=== PATIENT | female | born 1990 | race Caucasian/White ===

== ENCOUNTER 2020-08-16 13:05 | Observation (INO) ==
--- NOTE | 2020-08-16 13:41 | Emergency Department Note ---
Impression & Plan Cat bite, Flexor tenosynovitis of finger, Cat bite of left hand with infection ED Provider Note NAME: JAYLON KENNY AGE: 29 SEX: F : 1990 ARRIVES VIA: Walk-In INFORMANT: Patient, ED PROVIDER(S): Amarjit Chavez DO CHIEF COMPLAINT: Cat bite HPI: The patient is a 29-year-old female [facility]. The patient was bitten by a cat on her left index finger on August 03 of this year. The cat was known and was able to be quarantined. The cat is still alive and well so no rabies vaccination was given. She was seen at an urgent care center. Initially she was seen and given Rocephin and then sent home on Augmentin. She finished the course of Augmentin. She was seen again and started on clindamycin. She is continuing to take the clindamycin at this time. She notices redness and swelling at the left index fever. The patient has noticed worsening pain and swelling especially at the base of the finger. She is noticed some desquamation of the skin. She also notices some streaking up the arm. She denies having any swelling under the armpit. She states the redness began initially right away within the first 24 hours she had significant redness and swelling of the base of the finger. She denies having any fever. She has had no nausea or vomiting. She states that her tetanus shot is up-to-date. She states she has significant pain with straig htening of the digit. She tried to call a specialist today to be seen but was referred to the emergency department for further evaluation. ROS: See above HPI for pertinent positives & negatives. A total of 10 systems reviewed and were otherwise negative. PAST MEDICAL HISTORY: See Below PAST SURGICAL HISTORY: See Below FAMILY HISTORY: See Below SOCIAL HISTORY: See Below HOME MEDICATIONS: See Below ALLERGIES: See Below VITALS: See Below PHYSICAL EXAMINATION: GENERAL: The patient is awake and alert. The patient is somewhat anxious appearing. EYES: The conjunctivae are clear. The pupils are round and reactive. EARS, NOSE, MOUTH AND THROAT: The nose is without any evidence of any deformity. NECK: The neck is nontender and supple. RESPIRATORY: Normal respiratory effort is noted there is no evidence of wheezing rhonchi or rales CARDIOVASCULAR: Regular rate and rhythm noted there no murmurs rubs or gallops normal S1 normal S2. GASTROINTESTINAL: The abdomen is soft. Abdomen is nontender. MUSCULOSKELETAL/EXTREMITIES: There is no evidence of gross deformity full range of motion is noted in the hips and shoulders. SKIN: There is no lymph node swelling in the left axilla. There is symmetric swelling and erythema of the left index finger. Most of the swelling is concentrated at the base. The patient has significant pain with passive extension of the digit. There does not appear to be significant lymphangitic streaking on my exam. NEUROLOGIC: Patient is awake alert and oriented x3. MEDICAL DECISION MAKING: The patient is a 29-year-old female who presented to the emergency department for an evaluation of a hand infection. The patient was bitten by a cat 13 days ago. She has been on multiple antibiotic regimens and continues have significant infection especially in the left index finger. The patient states that she initially had significant swelling and erythema which has improved but she has been left with symmetric swelling and pain with passive extension of the left index finger. The patient's history and physical exam do appear to be consistent with flexor tenosynovitis but I would wonder if this is more of a subacute presentation likely because she has been on antibiotics continuously since the injury. The patient was treated with IV Rocephin in the emergency department. I discussed her case with the hand surgeon. He is agreed to evaluate the patient in the emergency department for further management and possible surgical intervention. Triage Nursing notes reviewed. Prior medical records reviewed Vital Signs: reviewed and remarkable for Elevated blood pressure Differential diagnosis: Cellulitis, abscess, MRSA infection, DVT, necrotizing fasciitis, dermatitis, drug eruption, allergic reaction, foreign body, flexor tenosynovitis as well as other pathologies. ER treatment provided: See below Diagnostics interpreted by me: ECG: none Laboratory studies: As stated above and show below. Imaging studies: See below Consultation(s): 1415: I discussed this case with Dr. Rivera. He is on-call for hand surgery. 1430: I discussed this case with Raphael Louise. He is agreed to evaluate the patient in the emergency department for further management and disposition. Past Med/Surg History Medical History (Updated 08/16/20 @ 14:47 by Amarjit Chavez, ) Encounter for intrauterine device placement Surgical History (Updated 08/16/20 @ 13:41 by Amarjit Chavez DO) Status post wisdom tooth extraction Social History Smoking Status: Never smoker Preferred Language: Arabic Feels Safe at Home: Yes Results & Data (ED) Vital Signs Vital Signs - 24 hr 08/16/20 13:08 Temperature 36.9 C Temperature Source Temporal Artery Scan Pulse Rate 87 Pulse Rhythm Regular Pulse Strength Normal Respiratory Rate 20 Respiratory Effort / Characteristics Non-Labored Spontaneous Respiratory Depth Normal Respiratory Pattern Regular Blood Pressure 141/89 H Blood Pressure Mean 106 Blood Pressure Position Sitting Pulse Oximetry 100 Oxygen Delivery Method Room Air Sepsis Recent Fever Within 48 Hours No Sepsis New/Unexplained Change in Mental Status No Sepsis Action Taken by Nursing No Action Required Home Medications Current Medication List: was personally reviewed by me Laboratory Data Attestation: I reviewed the patient's lab results. Result diagrams: 08/16/20 13:48 08/16/20 13:48 Lab Results 08/16/20 08/16/20 08/16/20 Range/Units 13:48 13:48 13:48 WBC 5.51 (4.8-10.8) K/uL RBC 4.38 (4.2-5.4) M/uL Hgb 13.8 (12.0-16.0) g/dL Hct 40.9 (37-47) % MCV 93.4 (80-100) fL MCH 31.5 (25-34) pg MCHC 33.7 (32-36) g/dL RDW Std Deviation 41.9 (36.4-46.3) fL RDW Coeff of Syl 12.3 (11.5-14.5) % Plt Count 318 (130-400) K/uL MPV 9.9 (7.4-10.4) fL Immature Gran % (Auto) 0.2 % Neut % (Auto) 53.2 % Lymph % (Auto) 28.1 % Hartley % (Auto) 15.6 % Eos % (Auto) 2.2 % Baso % (Auto) 0.7 % Neut # (Auto) 2.93 (1.4-6.5) K/uL Lymph # (Auto) 1.55 (1.2-3.4) K/uL Hartley # (Auto) 0.86 H (0.11-0.59) K/uL Eos # (Auto) 0.12 (0-0.5) K/uL Baso # (Auto) 0.04 (0-0.2) K/uL Immature Gran # (Auto) 0.01 (0.00-0.02) K/uL ESR 13 (0-20) mm/hr Sodium 139 (136-145) mmol/L Potassium 3.8 (3.5-5.1) mmol/L Chloride 105 (98-107) mmol/L Carbon Dioxide 32 (21-32) mmol/L Anion Gap 2.0 L (3-11) BUN 14 (7-18) mg/dl Creatinine 0.85 (0.6-1.2) mg/dl Est Cr Clr Drug Dosing 88.0 ml/min Est GFR ( Amer) 108.8 Est GFR (Non-Af Amer) 93.9 BUN/Creatinine Ratio 17.0 (10-20) Glucose 88 (70-99) mg/dl Calcium 9.3 (8.5-10.1) mg/dl Total Bilirubin 1.1 H (0.2-1) mg/dl AST 29 (15-37) U/L ALT 65 (12-78) U/L Alkaline Phosphatase 50 (45-117) U/L C-Reactive Protein 0.87 H (0-0.29) mg/dl Total Protein 8.1 (6.4-8.2) gm/dl Albumin 3.9 (3.4-5.0) gm/dl Globulin 4.2 H (2.5-4.0) gm/dl Albumin/Globulin Ratio 0.9 (0.9-2) Administered Medications Discontinued Medications Ceftriaxone Sodium (Rocephin) 1,000 mg in 50 mls @ 100 mls/hr IV NOW STA Stop: 08/16/20 14:46 Last Admin: 08/16/20 14:30 Dose: 100 mls/hr Documented by: [id number] Imaging Data Radiologist's Impression: Hand X-Ray 08/16/20 13:41 XR hand LT min 3V routine CLINICAL HISTORY: cat bite FINGER SWELLING. COMPARISON: None. DISCUSSION: No acute fractures or dislocations are visualized. There is soft tissue swelling centered on the second finger. No radiopaque foreign bodies are visualized. There are no erosive or destructive changes. IMPRESSION: 1. Soft tissue swelling involving the second digit 2. No fractures or dislocations 2. No radiopaque foreign bodies identified ACT 112: Negative or not required by law. Electronically signed by: Awais Novoa M.D. 08/16/2020 1:56 PM Discharge Plan Visit Data Chief Complaint: Animal Bite Stated Complaint: CAT BITE TO LEFT POINTER FINGER ED Provider: Amarjit Chavez Discharge Problem: Cat bite, Flexor tenosynovitis of finger, Cat bite of left hand with infection Patient Disposition: Being Evaluated by Surgeon Condition: Good Forms Stand Alone Forms: [facility] Referrals Referrals: Briana Marin DO [Primary Care Provider] - Discharge Problem: Cat bite Qualifiers: Encounter type: sequela Qualified Code(s): W55.01XS - Bitten by cat, sequela Cat bite of left hand with infection Qualifiers: Encounter type: subsequent encounter Qualified Code(s): S61.452D - Open bite of left hand, subsequent encounter
--- NOTE | 2020-08-16 13:57 | XRay Report ---
XR hand LT min 3V routine CLINICAL HISTORY: cat bite FINGER SWELLING. COMPARISON: None. DISCUSSION: No acute fractures or dislocations are visualized. There is soft tissue swelling centered on the second finger. No radiopaque foreign bodies are visualized. There are no erosive or destructi ve changes. IMPRESSION: 1. Soft tissue swelling involving the second digit 2. No fractures or dislocations 2. No radiopaque foreign bodies identified ACT 112: Negative or not required by law. Electronically signed by: Awais Novoa M.D. 08/16/2020 1:56 PM
[2020-08-16 14:04] LABS: Basophils # (auto) 0.04 K/uL (0-0.2); Basophils % (auto) 0.7 %; Eosinophils # (auto) 0.12 K/uL (0-0.5); Eosinophils % (auto) 2.2 %; Hematocrit (blood only) 40.9 % (37-47); Hemoglobin 13.8 g/dL (12.0-16.0); Immature Granulocytes # (auto) 0.01 K/uL (0.00-0.02); Immature Granulocytes % (auto) 0.2 %; Lymphocytes # (auto) 1.55 K/uL (1.2-3.4); Lymphocytes % (auto) 28.1 %; Mean Corpuscular Hemoglobin 31.5 pg (25-34); Mean Corpuscular Hgb Conc 33.7 g/dL (32-36); Mean Corpuscular Volume 93.4 fL (80-100); Mean Platelet Volume 9.9 fL (7.4-10.4); Monocytes # (auto) 0.86 K/uL (0.11-0.59); Monocytes % (auto) 15.6 %; Neutrophils # (auto) 2.93 K/uL (1.4-6.5); Neutrophils % (auto) 53.2 %; Platelet Count 318 K/uL (130-400); RDW Coefficient of Variation 12.3 % (11.5-14.5); RDW Standard Deviation 41.9 fL (36.4-46.3); Red Blood Count 4.38 M/uL (4.2-5.4); White Blood Count 5.51 K/uL (4.8-10.8)
[2020-08-16] MEDS ORDERED: cefTRIAXone SODIUM 1,000 MG/50 ML BAG IV STA (14:17)
[2020-08-16 14:21] LABS: Albumin Level 3.9 gm/dl (3.4-5.0); Calcium 9.3 mg/dl (8.5-10.1); Est GFR (African American) 108.8; Est GFR (Non-African American) 93.9; Potassium 3.8 mmol/L (3.5-5.1)
[2020-08-16 14:24] LABS: Albumin Globulin Ratio 0.9 (0.9-2); Bilirubin,Total 1.1 mg/dl (0.2-1); C Reactive Protein 0.87 mg/dl (0-0.29); Globulin 4.2 gm/dl (2.5-4.0); Total Protein 8.1 gm/dl (6.4-8.2)
[2020-08-16 14:48] LABS: Procalcitonin < 0.05 ng/ml (0-0.5)
--- NOTE | 2020-08-16 15:34 | History & Physical Report ---
Date of Service August 16, 2020 Assessment & Plan (1) Flexor tenosynovitis of finger: Case reviewed with Dr. Rivera. The patient obviously still has some infection that is ongoing and is felt that admission is necessary and planning for open irrigation debridement. Will be continued on ceftriaxone. She will be made n.p.o. after midnight and plans for irrigation and debridement tomorrow by . History of Present Illness Chief Complaint: Painful left finger Primary Care Provider: Briana Marin DO Patient is a 29-year-old white female who came to the emergency room today for pain in her left index finger. Approximately around August 03 of this month, the patient was bit by her cat. She cleaned the wounds that were caused by the cat bite and by the second day she noticed increased swelling and pain in the finger. She went to an urgent care facility and was given ceftriaxone and then sent home on Augmentin.She finished her course of Augmentin however was still having some symptoms. She was seen again and started on clindamycin. She has been continuing to take clindamycin at this time. She continued to notice w orsening pain between the PIP and MP joint of the index finger. She noticed some desquamation of the skin and some red streaking going up her arm. Try to get a hold of a specialist today but was referred to the emergency room. Currently she is sitting up in bed and appears comfortable. She denies any pain going up the forearm at this time or into the axilla. She denies any fevers, chills, or nausea and vomiting. She has noticed a little difference in her bowel habits being a little bit on the loose side but states that she feels is secondary to her antibiotics. She is currently concerned that she still has an ongoing infection and came into the emergency room today. I have discussed the case with Dr. Rivera. He feels the patient should be admitted and plans for open irrigation debridement of the index finger. Allergies Allergy/AdvReac Type Severity Reaction Status Date / Time No Known Allergies Allergy Verified 08/16/20 15:23 Home Medications Medication Instructions Recorded Confirmed Type Kyleena 17.5 mcg INTRAUTERINE CONTINOUS 08/16/20 08/16/20 History amoxicillin-pot clavulanate 1 tab PO BID 08/16/20 08/16/20 History calcium carbonate-vitamin D3 1 tab PO DAILY 08/16/20 08/16/20 History [Calcium 600 + D(3)] acetaminophen 1,000 mg PO Q8H PRN #0 tab 08/17/20 Rx amoxicillin-pot clavulanate 1 tab PO BID #20 tab 08/17/20 Rx [Augmentin] tramadol [Ultram] 50 mg PO Q4H PRN #20 tab 08/17/20 Rx Past Med/Surg History Medical History Encounter for intrauterine device placement Surgical History Status post wisdom tooth extraction Family History Father Coronary heart disease Social History Smoking Status: Never smoker Second Hand Exposure: No; Hx Alcohol Use: Yes Alcohol type: wine Hx Substance Use: No Preferred Language: Kinyarwanda Communication Ability: Effective Box Sealing Inspector Required: No Beliefs That Will Affect Care: None marital status: Current Living Situation: Spouse Feels Safe at Home: Yes Assistive Devices: Contacts Review of Systems Review of Systems: All systems reviewed & are unremarkable except as noted in HPI & below Physical Exam Constitutional: WD/WN, vitals as above Eyes: No scleral icterus or injection seen at this time. No visual disturbance. ENMT: external ear and nose normal, oropharynx normal Respiratory: normal respiratory effort, lungs clear to auscultation Cardiovascular: RRR, no murmur, no edema Gastrointestinal (Abdomen): normal bowel sounds, soft, nontender, no hepatosplenomegaly Musculoskeletal: Examination of her left index finger shows bite breen that have been much healed on the dorsum and volar aspect of the index finger between the PIP and MP joint. There is no drainage noted. On the lateral aspect of this area she has some moderate erythema and is fairly tender on palpation. She is also tender on palpation of the volar aspect of this portion of the finger. She does have tenderness on the dorsal aspect as well. Her MP joint is only mildly tender on palpation. Active range of motion is limited of the index finger at this time with flexion. She can get to almost full extension with some discomfort. Passive dorsiflexion of the index finger causes her moderate pain in the finger up to the MP joint. Passive flexion is limited and tender on the volar aspect. Sensation is intact. Cap refills less than 2 seconds. She has no noticeable striations going up into the hand and wrist and or forearm. She is nontender at the wrist and forearm. No tenderness at the elbow or axilla. Results & Data Results & Data ([facility]) Vital Signs (Past 12 Hours) Vital Signs Temp Pulse Resp BP Pulse Ox 08/16/20 13:08 36.9 C 87 20 141/89 H 100 Laboratory Results Laboratory Results WBC 5.51 K/uL (4.8-10.8) 08/16/20 13:48 RBC 4.38 M/uL (4.2-5.4) 08/16/20 13:48 Hgb 13.8 g/dL (12.0-16.0) 08/16/20 13:48 Hct 40.9 % (37-47) 08/16/20 13:48 MCV 93.4 fL (80-100) 08/16/20 13:48 MCH 31.5 pg (25-34) 08/16/20 13:48 MCHC 33.7 g/dL (32-36) 08/16/20 13:48 RDW Std Deviation 41.9 fL (36.4-46.3) 08/16/20 13:48 RDW Coeff of Syl 12.3 % (11.5-14.5) 08/16/20 13:48 Plt Count 318 K/uL (130-400) 08/16/20 13:48 MPV 9.9 fL (7.4-10.4) 08/16/20 13:48 Immature Gran % (Auto) 0.2 % 08/16/20 13:48 Neut % (Auto) 53.2 % 08/16/20 13:48 Lymph % (Auto) 28.1 % 08/16/20 13:48 Green % (Auto) 15.6 % 08/16/20 13:48 Eos % (Auto) 2.2 % 08/16/20 13:48 Baso % (Auto) 0.7 % 08/16/20 13:48 Neut # (Auto) 2.93 K/uL (1.4-6.5) 08/16/20 13:48 Lymph # (Auto) 1.55 K/uL (1.2-3.4) 08/16/20 13:48 Green # (Auto) 0.86 K/uL (0.11-0.59) H 08/16/20 13:48 Eos # (Auto) 0.12 K/uL (0-0.5) 08/16/20 13:48 Baso # (Auto) 0.04 K/uL (0-0.2) 08/16/20 13:48 Immature Gran # (Auto) 0.01 K/uL (0.00-0.02) 08/16/20 13:48 ESR 13 mm/hr (0-20) 08/16/20 13:48 Sodium 139 mmol/L (136-145) 08/16/20 13:48 Potassium 3.8 mmol/L (3.5-5.1) 08/16/20 13:48 Chloride 105 mmol/L (98-107) 08/16/20 13:48 Carbon Dioxide 32 mmol/L (21-32) 08/16/20 13:48 Anion Gap 2.0 (3-11) L 08/16/20 13:48 BUN 14 mg/dl (7-18) 08/16/20 13:48 Creatinine 0.85 mg/dl (0.6-1.2) 08/16/20 13:48 Est Cr Clr Drug Dosing 88.0 ml/min 08/16/20 13:48 Est GFR ( Amer) 108.8 08/16/20 13:48 Est GFR (Non-Af Amer) 93.9 08/16/20 13:48 BUN/Creatinine Ratio 17.0 (10-20) 08/16/20 13:48 Glucose 88 mg/dl (70-99) 08/16/20 13:48 Calcium 9.3 mg/dl (8.5-10.1) 08/16/20 13:48 Total Bilirubin 1.1 mg/dl (0.2-1) H 08/16/20 13:48 AST 29 U/L (15-37) 08/16/20 13:48 ALT 65 U/L (12-78) 08/16/20 13:48 Alkaline Phosphatase 50 U/L (45-117) 08/16/20 13:48 C-Reactive Protein 0.87 mg/dl (0-0.29) H 08/16/20 13:48 Total Protein 8.1 gm/dl (6.4-8.2) 08/16/20 13:48 Albumin 3.9 gm/dl (3.4-5.0) 08/16/20 13:48 Globulin 4.2 gm/dl (2.5-4.0) H 08/16/20 13:48 Albumin/Globulin Ratio 0.9 (0.9-2) 08/16/20 13:48 Procalcitonin < 0.05 ng/ml (0-0.5) 08/16/20 13:48 COVID-19 Eval Order CovFluRsv at [facility] 08/16/20 14:33 SARS-CoV-2 (PCR) NEGATIVE (Negative) 08/16/20 14:33 Influenza Type A (PCR) Negative (Neg) 08/16/20 14:33 Influenza Type B (PCR) Negative (Neg) 08/16/20 14:33 RSV (RT-PCR) Negative (Neg) 08/16/20 14:33 Impressions Hand X-Ray 08/16/20 13:41 XR hand LT min 3V routine CLINICAL HISTORY: cat bite FINGER SWELLING. COMPARISON: None. DISCUSSION: No acute fractures or dislocations are visualized. There is soft tissue swelling centered on the second finger. No radiopaque foreign bodies are visualized. There are no erosive or destructive changes. IMPRESSION: 1. Soft tissue swelling involving the second digit 2. No fractures or dislocations 2. No radiopaque foreign bodies identified ACT 112: Negative or not required by law. Electronically signed by: Awais Novoa M.D. 08/16/2020 1:56 PM
[2020-08-16 15:46] LABS: Influenza A virus by PCR Negative (Neg); Influenza B virus by PCR Negative (Neg); RSV by PCR Negative (Neg); SARS CoV2 RNA(COVID-19) InHosp NEGATIVE (Negative)
[2020-08-16] MEDS ORDERED: ACETAMINOPHEN 500 MG TAB PO PRN (17:42)
[2020-08-16] MEDS ORDERED: SODIUM CHLORIDE 0.9% 1000ML 1,000 ML IV SCH (17:42)
--- NOTE | 2020-08-16 17:52 | Anesthesiology Consultation ---
Date of Service August 16, 2020 Assessment & Plan Chart Review Chart Review: Acceptable Risk for Surgery Consults Requested none History Surgery Operation Date: 08/17/20 09:00 Proposed Procedures p Incision and Drainage Left Index Finger Flexor Tenosynovitis - Galen Rivera MD Height/Weight Height: 5 ft 5.5 in Weight: 56.1 kg Allergies Allergy/AdvReac Type Severity Reaction Status Date / Time No Known Allergies Allergy Verified 08/16/20 15:23 Medications Home Medications Medication Instructions Recorded Confirmed Last Taken amoxicillin-pot clavulanate 1 tab PO BID 08/16/20 08/16/20 08/16/20 08:00 calcium carbonate-vitamin D3 1 tab PO DAILY 08/16/20 08/16/20 08/16/20 [Calcium 600 + D(3)] levonorgestrel [Kyleena] 17.5 mcg INTRAUTERINE CONTINOUS 08/16/20 08/16/20 Unknown Past Medical History Medical History Encounter for intrauterine device placement Past Family History Family History Father Coronary heart disease Past Surgical History Surgical History Status post wisdom tooth extraction Social History Smoking Status: Never smoker Physical Exam Vital Signs Last Vital Signs Temp 36.9 C 08/16/20 17:43 Pulse 67 08/16/20 17:43 Resp 18 08/16/20 17:43 BP 142/91 H 08/16/20 17:43 Pulse Ox 99 08/16/20 17:43 Testing Laboratory Results 08/16/20 13:48 08/16/20 13:48
--- NOTE | 2020-08-16 18:23 | Hospitalist Consultation ---
Date of Consultation August 16, 2020 Assessment & Plan (1) Flexor tenosynovitis of finger: To be seen by Dr. Miguel chandler with plan for I&D tomorrow. - Continue ceftriaxone as she reports this as the antibiotic that seemed to have helped the most. - Add metronidazole for anaerobic coverage - Will follow cultures from OR; no blood cultures drawn, but not septic appearing, so not a major issue. (2) Cat bite: No cat scratch, no lymphadenopathy, so Bartonella seems unlikely. - Abx as above (3) DVT prophylaxis: SCDs - Low DVT risk per admission calculator History of Present Illness Attending Physician: Galen Rivera MD History of Present Illness 29yo F w/ no major PMH who presents with possible left index finger tenosynovitis. She was bitten by a cat on 08/03/2020. She washed the area well and went to bed, but in the morning, she had worsening swelling of the finger between the MTP and PIP joints. She went to urgent care, got a shot of ceftriaxone IM and was started on Augmentin. The finger had not improved, and she returned a few days later and got another shot of ceftriaxone IM and was started on clindamycin in addition to the Augmentin. She reports she is almost finished with the Augmentin and still has several days of the clindamycin left, but came to the ER because she felt the finger was more painful and had not improved swelling-dela cruz. She had some subjective chills the night of the cat bite, but no objective fever and no other systemic symptoms of infection. Allergies Allergy/AdvReac Type Severity Reaction Status Date / Time No Known Allergies Allergy Verified 08/16/20 15:23 Home Medications Medication Instructions Recorded Confirmed Type amoxicillin-pot clavulanate 1 tab PO BID 08/16/20 08/16/20 History calcium carbonate-vitamin D3 1 tab PO DAILY 08/16/20 08/16/20 History [Calcium 600 + D(3)] levonorgestrel [Kyleena] 17.5 mcg INTRAUTERINE CONTINOUS 08/16/20 08/16/20 History Patient History Medical History Encounter for intrauterine device placement Surgical History Status post wisdom tooth extraction Family History Father Coronary heart disease Social History Smoking Status: Never smoker Preferred Language: Sri Lankan Feels Safe at Home: Yes Review of Systems Review of Systems: All systems reviewed & are unremarkable except as noted in HPI & below Physical Exam Constitutional: WD/WN, vitals as above Eyes: EOM intact bilaterally; no conjunctival abnormality ENMT: external ear and nose normal, oropharynx normal Neck: trachea midline, no thyromegaly normal visual inspection Respiratory: normal respiratory effort, lungs clear to auscultation no respiratory distress Cardiovascular: RRR, no murmur, no edema Gastrointestinal (Abdomen): Inspection/Auscultation: abdomen normal to inspection; abdomen not distended Musculoskeletal: no cyanosis or clubbing, extremities motor strength 5/5 Extremities: + upper extremity abnormal to inspection Left (Swelling and tenderness of left index finger) Skin: no rashes, warm and dry Neurologic: moves all extremities and awake Psychiatric: Orientation: alert, oriented to person and cooperative Results & Data Results & Data ([facility]) Vital Signs (Past 12 Hours) Vital Signs Temp Pulse Pulse Resp BP BP Pulse Ox 08/16/20 17:43 36.9 C 67 18 142/91 H 99 08/16/20 16:02 75 16 120/84 97 08/16/20 13:08 36.9 C 87 20 141/89 H 100 PG Care Time/CCT Total # of Minutes Spent Total Time Spent with Patient: Total time spent is greater than 50% in coordination of care (as documented) at patient's floor/unit and/or counseling patient: Coding Level of Care Code 36666 Inpt Consult Level 4 Diagnoses Flexor tenosynovitis of finger M65.9 Cat bite W55.01XS Encounter type: sequela DVT prophylaxis Z29.9 (1) Cat bite Encounter type: sequela Qualified Code(s): W55.01XS - Bitten by cat, sequela
[2020-08-16 18:47] LABS: Pregnancy Test, Serum Negative (Negative)
[2020-08-16] MEDS: metroNIDAZOLE 500 MG/100 ML BAG IV SCH (20:05)
[2020-08-17] MEDS: metroNIDAZOLE 500 MG/100 ML BAG IV SCH ×2 (03:57→10:48)
[2020-08-17] MEDS ORDERED: ceFAZolin 1000MG 1,000 MG/7.5 ML SYR IV SCH (06:00)
[2020-08-17] MEDS ORDERED: PROPOFOL IV EMULSION 10 MG/ML 20 ML VIAL IV ONE ×6 (06:46→08:22)
[2020-08-17] MEDS ORDERED: LIDOCAINE HCL 2% 2 ML VIAL/AMP(20MG/ML) INFIL ONE (06:46)
[2020-08-17] MEDS ORDERED: MIDAZOLAM HCL 1 MG/ML 2ML VIAL ONE (06:46)
[2020-08-17] MEDS ORDERED: fentaNYL citrate 100 MCG/2 ML VIAL ONE (06:46)
[2020-08-17] MEDS ORDERED: BUPIVACAINE 0.5 % 5 MG/1 ML MPF 30ML VIAL ONE (07:19)
[2020-08-17] MEDS ORDERED: BACITRACIN INJ 50,000 UNIT VIAL ONE (07:19)
[2020-08-17] MEDS ORDERED: LIDOCAINE HCL 1% 20 ML VIAL ONE (07:42)
[2020-08-17] MEDS ORDERED: ATROPINE SULFATE 0.1 MG/ML 10ML SYR IV PRN (07:44)
[2020-08-17] MEDS ORDERED: fentaNYL citrate 100 MCG/2 ML VIAL IV PRN (07:44)
[2020-08-17] MEDS ORDERED: ONDANSETRON INJ 2 MG/ML 2 ML VIAL IV PRN (07:44)
[2020-08-17] MEDS ORDERED: KETOROLAC 30 MG/ML VIAL IV PRN (07:44)
[2020-08-17] MEDS ORDERED: PROMETHAZINE HCL 6.25 MG in SODIUM CHLORIDE 0.9% 50 ML IV PRN (07:44)
--- NOTE | 2020-08-17 07:47 | History & Physical Bridge Note ---
Date of Service August 17, 2020 History & Physical Bridge Note I have examined the patient, reviewed the History & Physical and in the interval since the performance of the History & Physical I have noted the following changes of clinical significance: no changes noted I saw Carmen in the preoperative holding area we discussed risk benefits reasonable outcomes and expectations for surgery. We will plan for 1. Left index finger irrigation and debridement of septic flexor tenosynovitis.
--- NOTE | 2020-08-17 08:33 | Post Operative Brief Note ---
Immediate Post Op Note v1 Date of Surgery August 17, 2020 Pre & Post Diagnosis Left index finger septic flexor tenosynovitis, left index finger abscess Operation Date: 08/17/20 09:0 I identified the patient and participated in the time-out.: Yes Procedure Operation Date: 08/17/20 09:00 <No data on this case meets the specified criteria> Left index finger irrigation and debridement of septic flexor tenosynovitis, left index finger I&D of abscess Surgeon Galen Rivera MD Rubber Gasket Inspector Trimmer Litzy, pac Estimated Blood Loss 3 Findings Consistent with Post-Op Diagnosis
[2020-08-17] MEDS ORDERED: HYDROCODONE/ACETAMOPHEN 5/325MG TAB PO PRN ×2 (08:41)
[2020-08-17] MEDS ORDERED: cefTRIAXone SODIUM 1,000 MG in DEXTROSE 5% 50 ML IV SCH (09:00)
[2020-08-17] MEDS ORDERED: AMOXICILLIN/CLAVULANATE 875MG HOME PACK PO SCH (09:19)
[2020-08-17] MEDS ORDERED: LEVONORGESTREL IU SCH (09:19)
[2020-08-17] MEDS ORDERED: [UNRECOGNIZED DRUG - OTHER] IU SCH (09:19)
--- NOTE | 2020-08-17 09:45 | Anesthesiology Progress Note ---
Date of Service August 17, 2020 Anesthesia Post Procedure Vital Signs Vital Signs: Temp Pulse Pulse Pulse Resp BP BP 08/17/20 09:40 36.7 C 64 16 08/17/20 09:10 36.5 C 60 16 08/17/20 09:05 36.4 C L 79 16 08/17/20 08:55 65 14 08/17/20 08:46 36.4 C L 76 14 08/17/20 07:14 36.9 C 77 16 128/86 08/16/20 22:47 36.9 C 67 18 132/90 08/16/20 18:21 36.9 C 67 16 149/89 H 08/16/20 17:43 36.9 C 67 18 08/16/20 16:02 75 16 08/16/20 13:08 36.9 C 87 20 141/89 H BP Pulse Ox 08/17/20 09:40 116/77 99 08/17/20 09:10 123/85 98 08/17/20 09:05 118/86 100 08/17/20 08:55 117/83 98 08/17/20 08:46 112/80 99 08/17/20 07:14 97 08/16/20 22:47 99 08/16/20 18:21 99 08/16/20 17:43 142/91 H 99 08/16/20 16:02 120/84 97 08/16/20 13:08 100 Pain Intensity Left Hand: Pain Intensity: 5 Left Finger: Pain Intensity: 3 Transfer of Care Handoff Completed per policy Notes Mental Status: alert / awake / arousable Patient Amnestic to Procedure: Yes Nausea / Vomiting: adequately controlled Pain: adequately controlled Airway Patency, RR, SpO2: stable & adequate BP & HR: stable & adequate Hydration State: stable & adequate Anesthetic Complications: no major complications apparent
[2020-08-17] MEDS ORDERED: CALCIUM 600MG + VIT D 400 IU TAB PO SCH (10:00)
[2020-08-17] MEDS: traMADol HCL 50 MG TABLET PO PRN ×2 (10:47→11:24)
--- NOTE | 2020-08-17 15:58 | Hospitalist Progress Note ---
Date of Service August 17, 2020 Assessment & Plan (1) Flexor tenosynovitis of finger: 29yo female with flexor tenosynovitis of left index finger two weeks after being bitten by a cat. Flexor tenosynovitis of left index finger -08/17: I&D of septic flexor tenosynovitis, I&D of abscess - performed Dr. Rivera -Patient tolerated procedure well -Augmentin 875-125mg 1 tab PO bid for ten days upon discharge, per ortho -Follow up with ortho scheduled for 08/20 -Tramadol 50mg 1-2 tabs q4h prn severe pain - 20 tabs provided upon discharge -Follow up cultures -Tetanus immunization up-to-date -1-2 week follow-up with PCP recommended (2) Cat bite of left hand with infection: Admission and Anticipated Discharge Date Admission Date: August 16, 2020 Supervising Physician Co-Signing Physician Notes I also saw the patient and confirmed abraham portions of the history and physical examination. Agree with the impression and plan as noted in the resident documentation. 29-year-old female with flexor tenosynovitis in the setting of a recent cat bite. She was initially seen at an urgent care facility and was given an IM in jection of ceftriaxone and started on Augmentin. When the finger did not improve, she got a second dose of IM ceftriaxone and was started on clindamycin. She presented to the emergency department with continued complaints of pain, erythema, and edema. She was admitted yesterday and underwent a left index finger irrigation and debridement of septic flexor tendosynovitis and left index finger incision and drainage of abscess early this morning. Medicine was consulted for medical management. Upon our exam today, she does have some mild discomfort and had just been medicated with tramadol. Exam 123/75, 79, 14, 36.9 C, 98% on room air The finger is wrapped and in a protective splint Heart regular rate and rhythms. No murmurs appreciated. Lungs clear with nonlabored respiration Data CBC from 08/16 shows 3 BC 5.51 and hemoglobin 13.8. BMP was unremarkable C-reactive protein 0.87. Impression and plan Tenosynovitis status post I&D Discharge today on Augmentin Ultram as needed for pain Discussed signs and symptoms for return to hospital (patient is a physician's executive personal assistant) Follow-up with orthopedics as scheduled on Wednesday Subjective Patient seen at bedside this morning shortly after returning from the OR. Patient feels well - reports being a bit out of it due to the anesthesia but was overall feeling quite well with minimal pain and no other symptoms. Checked on patient again later in the day - pain had increased quite a bit and patient was requesting pain meds stronger than APAP for a few days upon discharge. Ortho follow-up schedule for Wednesday. Patient denies fever, chills, SOB, abdominal pain, nausea, vomiting. No other concerns at this time. Eager for discharge. Review of Systems Review of Systems: See HPI Physical Exam Physical Exam: Gen: well-appearing, no acute distress, laying comfortably in bed CV: regular rhythm Resp: CTABL MSK: right wrist/hand/index finger wrapped in an immobile splint; no erythema or edema of the visible skin just distal to the elbow Results & Data Results & Data ([facility]) Vital Signs (Past 12 Hours) Vital Signs Temp Pulse Pulse Resp BP BP Pulse Ox 08/17/20 11:12 36.9 C 79 70 14 123/75 98 08/17/20 11:10 36.8 C 65 16 121/82 93 08/17/20 10:12 36.9 C 70 14 123/75 98 08/17/20 09:40 36.7 C 64 16 116/77 99 08/17/20 09:10 36.5 C 60 16 123/85 98 08/17/20 09:05 36.4 C L 79 16 118/86 100 08/17/20 08:55 65 14 117/83 98 08/17/20 08:46 36.4 C L 76 14 112/80 99 08/17/20 07:14 36.9 C 77 16 128/86 97 Resident Activity Tracking Resident Involvement: Resident Care Provided Care Provided: Adult Hospital Medicine (1) Cat bite of left hand with infection Encounter type: subsequent encounter Qualified Code(s): S61.452D - Open bite of left hand, subsequent encounter; L08.9 - Local infection of the skin and subcutaneous tissue, unspecified; W55.01XD - Bitten by cat, subsequent encounter
--- NOTE | 2020-08-19 08:00 | Operative Report (OR) ---
DATE OF OPERATION: 08/17/2020 PREOPERATIVE DIAGNOSIS: Left index finger septic flexor tenosynovitis. POSTOPERATIVE DIAGNOSIS: Left index finger septic flexor tenosynovitis. PROCEDURE: Left index finger I and D of abscess. SURGEON: Que Rivera MD. [employer] DEVELOPER: Per Mcghee PA-C, who was necessary for prepping, draping, retraction, exposure and closure. ANESTHESIA: Digital block with sedation. 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 She has failed multiple antibiotics and she is admitted with concern for flexor tenosynovitis. I saw her in the preoperative holding area. We discussed risks, benefits, reasonable outcomes and expectations. We discussed options of I and D of septic flexor tenosynovitis with other work as indicated. The risks and benefits have been discussed including, but not limited to, risk of infection, nerve injury, stiffness, loss of motion, failure to improve, etc. Reasonable outcomes and options of treatment were discussed. An explanation of appropriate alternatives to the procedure that may be advantageous were discussed and their risks and benefits, as well as the risks and benefits of not proceeding with treatment. I offered to answer any additional inquiries concerning the treatment involved. All the patient's questions were answered. The patient is agreeable, understanding of the treatment plan and alternatives, and wishes to proceed with the treatment plan. DESCRIPTION OF OPERATION: I made a longitudinal incision over the A1 lo. Prior to the procedure, I injected a mixture of lidocaine and Marcaine in the local area as a digital block and she was given sedation by the department of anesthesia. I made a longitudinal incision directly over the A1 lo. Dissection was carried down through the skin and subcutaneous tissues. Digital nerves were retracted free and I sharply incised the A1 lo. There is a moderate amount of serous fluid consistent with septic flexor tenosynovitis. I sent this for culture. I performed debridement in the local area of skin, subcutaneous tissue and fascia. The patient had an area of pointing over the volar aspect of the proximal phalanx directly where the cat bite was. I made a small zigzag Bhargavi incision in that area. I identified gross purulence in the subcutaneous tissue. This was irrigated and I sent this for culture as well. This did communicate down to the flexor tendon system. I then made a third incision over the ulnar aspect of the DIP joint in the mid lateral approach. I opened up the flexor tendon system bluntly. I then performed [id number]-[id number] irrigation from the proximal A1 incision to the distal incision irrigating the flexor tendon system. This completed irrigation and debridement of flexor tenosynovitis. I inspected the zigzag Bhargavi incision over the proximal phalanx. Subcutaneous abscess was encountered. I thoroughly drained this and performed a debridement of the area of skin and subcutaneous tissue. I irrigated the abscess copiously. The tourniquet was let down, hemostasis was obtained with bipolar cautery. Skin was closed with 4-0 nylon. I placed packing in the Bhargavi incision over the proximal phalanx. The patient was placed in soft dressing and sent to PACU in stable condition. POSTOPERATIVE PLAN: Discharge on oral Augmentin. We will monitor cultures and begin hand therapy as soon as possible. I attest to the content of the Intraoperative Record and any orders documented therein. Any exception s are noted below.
== END 2020-08-17 13:53 | disposition home or self-care (01) ==
LOC: ED 13:05 → 3W 15:38 → INTOOBSV 15:38 → SUATTDRO 15:38 → 3W 17:02